=== PATIENT | female | born 1960 | race Caucasian/White ===

== ENCOUNTER 2017-05-07 14:22 | Emergency (ER) | payer OTHER ==
[2017-05-07 14:33] VITALS: BP 121/79; PULSE 65; TEMP 98.2; BMI 24.1
--- NOTE | 2017-05-07 15:08 | PDOC ---
History of Present Illness - General Chief Complaint: Chest Pain Stated Complaint: CHEST PAIN Time Seen by Provider: 05/07/17 15:06 History Source: Patient Exam Limitations: No Limitations - History of Present Illness Initial Comments: CHIEF COMPLAINT: 56 y/o afebrile female with no significant PMH c/o chest pain this afternoon. HISTORY OF PRESENT ILLNESS: The patient states she was sitting at her desk at work when she started feeling "burning" chest pain just behind her lower breastbone. She states the pain comes and goes but it's pain she's never experiences before. She denies dizziness, DOMINGO, changes in vision/hearing, f/c, n /v/d, cough, hemoptysis, SOB, abd pain, hematuria, dysuria, calf pain, recent travel, control/hormone use, smoking history, family history of cardiac disease. She does admit she has a very stressful job and ate only coffee and fruit today. [place] city. Vital signs on arrival are within normal limits. REVIEW OF SYSTEMS: GENERAL/CONSTITUTIONAL: No fever/chills. No weakness. No weight change. HEAD, EYES, EARS, NOSE AND THROAT: No change in vision. No ear pain or discharge. No sore throat. CARDIOVASCULAR: +chest pain. No shortness of breath. RESPIRATORY: No cough, wheezing, or hemoptysis. GASTROINTESTINAL: No abd pain, nausea, vomiting, diarrhea, constipation. GENITOURINARY: No dysuria, frequency, or change in urination. MUSCULOSKELETAL: No joint or muscle swelling or pain. No neck or back pain. SKIN: No rash or easy bruising. NEUROLOGIC: No headache, vertigo, loss of consciousness, or loss of sensation. PHYSICAL EXAM: GENERAL: The patient is awake, alert, and fully oriented, in no acute distress. She is very well appearing, ambulatory, in NAD or obvious discomfort. HEAD: Normal with no signs of trauma. ENT: Pupils equal, round and reactive to light, extraocular movements intact, sclera anicteric, conjunctiva clear. Neck supple. LUNGS: Clear to auscultation bilaterally. Normal excursion. No respiratory distress or use of accessory muscles. CV: RRR, S1/S2, no MRG. Cap refill < 2 sec. CHEST WALL: Reproducible pain with palpation of lower anterior sternum. ABDOMEN: Soft, non-distended, non-tender even to deep palpation, no hepatomegaly or splenomegaly, no masses. EXTREMITIES: Normal range of motion, no edema. NEUROLOGICAL: Normal speech, normal gait. CN II-XII grossly intact. PSYCH: Normal mood, normal affect. SKIN: Warm, dry, normal turgor, no rashes or lesions noted. Past History - Past Medical History Allergies/Adverse Reactions: Allergies Allergy/AdvReac Type Severity Reaction Status Date / Time Penicillins Allergy Intermediate Swelling Verified 05/07/17 14:31 Thyroid Disease: Yes (HYPO.) - Psycho/Social/Smoking Cessation Hx Anxiety: No Suicidal Ideation: No Smoking History: Never smoked Hx Alcohol Use: No Drug/Substance Use Hx: No Substance Use Type: None *Physical Exam - Vital Signs Last Vital Signs Temp Pulse Resp BP Pulse Ox 98.2 F 65 18 121/79 99 05/07/17 14:30 05/07/17 14:30 05/07/17 14:30 05/07/17 14:30 05/07/17 14:30 Heart Score/ECG Review - History History: Highly suspicious - ECG Intrepretation Comment:: Twelve-lead EKG was performed and reviewed by Dr. Crawford. There is normal sinus rhythm with a normal rate. The axis is normal. The intervals are normal. There are no ST or T wave abnormalities. Impression: Normal twelve-lead EKG ED Treatment Course - LABORATORY CBC & Chemistry Diagram: 05/07/17 15:25 05/07/17 15:25 - ADDITIONAL ORDERS Additional order review: Laboratory Results 05/07/17 05/07/17 05/07/17 16:35 15:25 15:25 Sodium Cancelled Cancelled Potassium Cancelled Cancelled Chloride Cancelled Cancelled Carbon Dioxide Cancelled Cancelled Anion Gap Cancelled Cancelled BUN Cancelled Cancelled Creatinine Cancelled Cancelled Creat Clearance w eGFR Cancelled Cancelled Random Glucose Cancelled Cancelled Calcium Cancelled Cancelled Total Bilirubin Cancelled Cancelled AST Cancelled Cancelled ALT Cancelled Cancelled Alkaline Phosphatase Cancelled Cancelled Creatine Kinase Cancelled Cancelled Troponin I Cancelled Cancelled Total Protein Cancelled Cancelled Albumin Cancelled Cancelled Urine Color Straw Urine Appearance Clear Urine pH 8.0 Urine Protein Negative Urine Glucose (UA) Negative Urine Ketones Negative Urine Blood Negative Urine Nitrite Negative Urine Bilirubin Negative Urine Urobilinogen Negative Ur Leukocyte Esterase 3+ H Urine RBC 1 Urine WBC 16 Ur Epithelial Cells Rare 08/07/17 15:25 RBC 4.26 MCV 89.6 MCHC 33.5 RDW 14.0 MPV 8.3 Neutrophils % 58.1 Lymphocytes % 33.1 Monocytes % 7.4 Eosinophils % 0.7 Basophils % 0.7 - RADIOLOGY Radiology Studies Ordered: Category Date Time Status CHEST PA & LAT [RAD] Stat Radiology 05/07/17 15:18 Completed - Medications Given in the ED: ED Medications Discontinued Medications Generic Name Dose Route Start Last Admin Trade Name Freq PRN Reason Stop Dose Admin Famotidine/Sodium Chloride 50 mls @ 100 mls/hr 05/07/17 15:18 05/07/17 16:03 Pepcid 20 Mg Premixed Ivpb - IVPB 05/07/17 15:47 100 mls/hr ONCE ONE Administration Medical Decision Making - Medical Decision Making A/P: 56 y/o afebrile female with distal substernal chest pain. Her story and PMH are suggestive of GERD over NC. Pt has no risk factors for PE. WIll r/o ACS. Plan is as follows: 1. EKG 2. CXR 3. Labs 4. IV pepcid EKG normal CXR IMPRESSION: No acute disease. The patient's CMP/Cardiac profile have been hemolized twice. She states she feels better with resolution of symptoms and does not want to wait for 3rd attempt at blood work. I informed her that she should stay to r/o NC and she understands the risks of leaving but still wants to sign out AMA. The patient ambulates without difficulty out of the emergency department. She is alert and oriented and of sound decision making capacity. She leaves AGAINST MEDICAL ADVICE. AMA-AGAINST MEDICAL ADVICE The patient is a 56-year-old female who wants to leave the [facility] Emergency Department before assessment, diagnosis and treatment are completed. The patient has been counseled in regard to the benefits of remaining for treatment and the risks of leaving before medical evaluation and care are provided. These risks are many and include failure to diagnose the condition, failure to provide needed treatment, and a failure to obtain needed specialty care as required. The patient has been informed that failure to complete needed diagnosis and treatment may result in pain, worsening of any medical conditions, possible permanent disability, and . Despite receiving detailed information regarding the benefits of completing care as well as the risks of leaving, the patient has elected to leave. An AMA form was completed. The patient has been told that they are welcome to return to the emergency department at any time should their condition worsen or if they have change their mind. *DC/Admit/Observation/Transfer Diagnosis at time of Disposition: Chest pain Qualifiers: Chest pain type: other chest pain Qualified Code(s): R07.89 - Other chest pain - Discharge Dispostion Disposition: AGAINST MEDICAL ADVICE Condition at time of disposition: Improved - Referrals Referrals: STAFF,NOT ON [Primary Care Provider] - - Patient Instructions Printed Discharge Instructions: DI for Chest Pain
[2017-05-07] MEDS ORDERED: FAMOTIDINE 20 MG/50 ML IVPB 50 ML IVPB ONE ×2 (15:18→15:59)
[2017-05-07 16:00] LABS: BASOPHIL 0.7 % (0-2.0); EOSINOPHIL 0.7 % (0-4.5); MCHC 33.5 g/dl (32.0-36.0); MEAN CELL VOLUME 89.6 fl (80-96); MEAN PLT VOLUME 8.3 fl (7.5-11.1); NEUTROPHILS 58.1 % (42.8-82.8); PLATELET COUNT 227 K/MM3 (134-434); WHITE BLOOD COUNT 4.1 K/mm3 (4.0-10.0)
[2017-05-07 17:55] LABS: URINE APPEARANCE CLEAR; URINE BILIRUBIN NEGATIVE (NEGATIVE); URINE BLOOD NEGATIVE (NEGATIVE); URINE COLOR STRAW; URINE GLUCOSE (UA) NEGATIVE (NEGATIVE); URINE KETONE NEGATIVE (NEGATIVE); URINE NITRITE NEGATIVE (NEGATIVE); URINE PROTEIN NEGATIVE (NEGATIVE); URINE UROBILINOGEN NEGATIVE mg/dL (0.2-1.0)
[2017-05-07 18:07] LABS: URINE LEUK ESTERASE 3+ (NEGATIVE)
[2017-05-07 18:10] LABS: URINE RBC 1 /hpf (0-3); URINE WBC 16 /hpf (3-5)
--- NOTE | 2017-05-09 14:48 | EKG ---
Test Reason : Blood Pressure : / mmHG Vent. Rate : 063 BPM Atrial Rate : 063 BPM P-R Int : 132 ms QRS Dur : 074 ms QT Int : 398 ms P-R-T Axes : 050 005 024 degrees QTc Int : 407 ms NORMAL SINUS RHYTHM NORMAL ECG NO PREVIOUS ECGS AVAILABLE Confirmed by SILVA CLIFFORD MD ([id number]) on 05/09/2017 2:48:26 PM Referred By: Confirmed By:SILVA CLIFFORD MD
== END 2017-05-07 18:47 | disposition left against medical advice (07) ==
LOC: JER 14:22
PROC: 3E033GC Introduction of Other Therapeutic Substance into Peripheral Vein, Percutaneous Approach (ICD-10-PCS; principal; 2017-05-07)
DX: R07.89 Other chest pain (principal)
CPT/HCPCS: 36415; 71020-TC; 81003; 81015; 85025; 93005; 93010; 99283-25